=== PATIENT | female | born 1945 | race Caucasian/White ===

== ENCOUNTER → 2023-12-13 | Outpatient (CLI) | payer MEDICARE, SELFPAY ==
[2023-12-13 15:07] LABS: Absolute Lymphocyte Count 1.67 X10^3/uL (0.83-4.51); Absolute Neutrophil Count 6.1 X10^3/uL (2.0-7.7); Basophil# 0.03 X10^3/uL; Basophil% 0.3 % (0-1); Eosinophils% 1.2 % (0-5); Hematocrit 44.2 % (37-47); Hemoglobin 14.3 g/dL (12.0-15.0); Lymphocyte # 1.67 X10^3/ul (0.83-4.51); Lymphocyte % 19.3 % (19-41); Mean Corp Hgb Conc 32.4 g/dL (32-36); Mean Corpuscular Hgb 29.1 pg (27.0-32.0); Monocyte# 0.74 X10^3/uL; Monocyte% 8.6 % (0-10); NRBC Flagged by Analyzer 0 % (0-5); Neutrophil # 6.06 X10^3/uL (2.7-7.7); Neutrophil % 70.1 % (47-70); Platelet Count 188 K/mm3 (150-450); RBC Distribution Width CV 14.2 % (11.6-14.6); RBC Distribution Width SD 46.7 fl (35.1-43.9); Red Blood Count 4.91 M/mm3 (4.2-5.4); White Blood Count 8.6 K/mm3 (4.4-11.0)
[2023-12-13 15:43] LABS: ALB/GLOB Ratio 0.9 RATIO (0.9-2.4); AST(SGOT) 14 U/L (15-37); Alanine Aminotransfer ALT/SGPT 21 U/L (13-56); Albumin, Serum 3.5 g/dL (3.2-5.0); Alkaline Phosphatase 88 U/L (45-117); Anion Gap 5 (5-15); BUN 15 mg/dL (7-18); BUN/Creat Ratio 16.5 RATIO (10-20); Calcium,Total 9.5 mg/dL (8.5-10.1); Chloride 106 mmol/L (98-107); Cholesterol 217 mg/dL (200); Creatinine, Serum 0.91 mg/dL (0.55-1.02); EST Glomerular Filtration Rate 64 mL/min (>60); Est Glom Filt Rate - Afr Amer 78 mL/min (>60); Globulin 4.1 g/dL (2.2-4.2); Glucose 116 mg/dL (74-106); High Density Lipoprotein 60 mg/dL; Potassium 4.2 mmol/L (3.5-5.1); Protein, Total 7.6 g/dL (6.4-8.2); Sodium Level 139 mmol/L (136-145); Triglycerides 233 mg/dL; Very Low Density Lipoprotein 47 mg/dL (5-40)
[2023-12-13 15:44] LABS: BNP,B-Type NATRIURETIC PEPTIDE 204.4 pg/mL (0-100)
== END | disposition home or self-care (01) ==
PROVIDERS: PCP Family Medicine; Referring Provider Family Medicine; Visit Provider Family Medicine
DX: I11.9 Hypertensive heart disease without heart failure (principal); R01.1 Cardiac murmur, unspecified; R10.9 Unspecified abdominal pain
CPT/HCPCS: 36415; 80053; 80061; 83880; 84443; 85025

== ENCOUNTER → 2024-01-02 | Outpatient (CLI) | payer MEDICARE, SELFPAY ==
--- NOTE | 2024-01-02 10:01 | ECHOD_ITS ---
Reason For Study: MURMUR Procedure This was a 2D Doppler, Color Flow transthoracic echocardiogram. The study was technically difficult. Exam performed in department. Left Ventricle Normal LV size. Left ventricular systolic function is normal. The left ventricular ejection fraction is 65 %. Stage 1 diastolic dysfunction. No regional wall motion abnormalities noted. Right Ventricle Normal RV size. Normal systolic function. Atria Normal left atrium. Normal right atrium. Mitral Valve Normal mitral valve. Tricuspid Valve Normal tricuspid valve. Aortic Valve Peak aortic valve gradient 84 mmHg. Mean aortic valve gradient 55 mmHg. Critical aortic stenosis. Pulmonic Valve Normal pulmonic valve. Great Vessels Normal aortic root. The pulmonary artery is normal size. Inferior vena cava collapse with respiration. Pericardium/Pleural No pericardial effusion. MMode/2D Measurements & Calculations LVIDd: 4.8 cm IVSd: 1.1 cm LVOT diam: 1.8 cm LVIDs: 2.8 cm LVPWd: 1.1 cm LVOT area: 2.5 cm2 RVDd: 3.5 cm FS: 42.5 % asc Aorta Diam: 2.8 cm LAV(MOD-bp): 54.1 ml LVAd ap4: 22.8 cm2 LAV(MOD-bp) Indexed: 28.1 ml/m2 LVLd ap4: 7.5 cm LAV(MOD-sp2): 52.8 ml EDV(MOD-sp4): 57.6 ml LAV(MOD-sp4): 54.7 ml EDV(sp4-el): 59.2 ml LVAs ap4: 12.4 cm2 LVLs ap4: 6.2 cm ESV(MOD-sp4): 21.6 ml ESV(sp4-el): 21.1 ml EF(MOD-sp4): 62.4 % EF(sp4-el): 64.3 % LVAd ap2: 20.8 cm2 SV(MOD-sp4): 35.9 ml SV(MOD-sp2): 30.0 ml LVLd ap2: 7.1 cm EDV(MOD-sp2): 51.7 ml EDV(sp2-el): 52.2 ml LVAs ap2: 11.8 cm2 LVLs ap2: 5.8 cm ESV(MOD-sp2): 21.7 ml ESV(sp2-el): 20.5 ml EF(MOD-sp2): 58.0 % SV(sp4-el): 38.0 ml Ao sinus diam: 2.[address] Junction: 2.1 cm LA dimension(2D): 4.0 cm LA A4 area: 19.6 cm2 RA A4 area: 11.2 cm2 TAPSE: 1.9 cm Time Measurements MV dec time: 0.16 sec Doppler Measurements & Calculations MV E max adonay: 111.7 cm/sec Lat Peak E' Adonay: 10.0 cm/sec Med Peak E' Adonay: 7.3 cm/sec MV A max adonay: 119.3 cm/sec E/E' lat: 11.2 E/E' med: 15.3 MV E/A: 0.94 MV dec slope: 685.1 cm/sec2 Ao V2 max: 456.4 cm/sec LV V1 max: 111.9 cm/sec Ao max P.4 mmHg LV V1 max P.0 mmHg Ao V2 mean: 360.7 cm/sec LV V1 mean P.2 mmHg Ao mean P.3 mmHg LV V1 mean: 87.7 cm/sec Ao V2 VTI: 109.1 cm LV V1 VTI: 27.3 cm AV (velocity ratio): 0.25 CONSTANCE(I,D): 0.62 cm2 CONSTANCE(V,D): 0.61 cm2 SV(LVOT): 67.9 ml PA V2 max: 91.6 cm/sec PA max PG (full): 1.2 mmHg ECHO/Echo Complete Interpretation Summary Normal LV size. Left ventricular systolic function is normal. The left ventricular ejection fraction is 65 %. Stage 1 diastolic dysfunction. Mean aortic valve gradient 55 mmHg. Critical aortic stenosis. Ordering Physician: Ria Aparicio Referring Physician: Ria Aparicio Performed By: Briseida Stubbs RDCS
--- NOTE | 2024-01-02 10:53 | BI_ITS ---
MAMMOGRAPHY - BILATERAL SCREENING REASON FOR EXAM: Female, 78 years old. Routine annual screening examination. PERTINENT HISTORY: Non-contributory. TECHNIQUE: Digital bilateral breast linda (3D mammographic acquisition) in the CC and MLO projections. 2-D mediolateral oblique (MLO) and craniocaudad (CC) views of both breasts were obtained. CAD: Full Field Digital Mammography with Computer Added Detection was performed. COMPARISON: No comparison mammograms available at this time. If any prior films become available, an addendum to this report can be generated. FINDINGS: Breast Composition: There are scattered areas of fibroglandular density. There are no dominant masses or suspicious calcifications. No other significant abnormalities are identified. BI/SCRN MAMM (CAD)W/LINDA BILAT IMPRESSION: Negative screening mammogram. Yearly followup mammogram recommended. (A) ASSESSMENT CATEGORY: BIRADS Category 1: Negative. A letter regarding these results will be sent to the patient by the facility within 30 days. Approximately 10% of breast cancers are not detected by mammography. A normal mammogram should not delay biopsy of a clinically suspicious abnormality. [id number] Electronically Signed: Freeman Montes MD at 12:10 EDT ,
== END | disposition home or self-care (01) ==
PROVIDERS: PCP Family Medicine; Referring Provider Family Medicine; Visit Provider Family Medicine
DX: Z12.31 Encounter for screening mammogram for malignant neoplasm of breast (principal); R01.1 Cardiac murmur, unspecified
CPT/HCPCS: 77063; 77067; 93306

== ENCOUNTER → 2024-01-08 | Outpatient (CLI) | payer MEDICARE, SELFPAY ==
--- NOTE | 2024-01-08 15:05 | RAD_ITS ---
STUDY: X-RAY CHEST REASON FOR EXAM: Female, 78 years old. Dyspnea on exertion. TECHNIQUE: Frontal and lateral views of the chest. COMPARISON: None. FINDINGS: The lungs are clear and expanded. Healed granulomatous calcifications. There is no demonstrated pleural abnormality. Cardiomegaly. Normal mediastinum and shasta. Normal visualized pulmonary arteries. Aortic tortuosity. Thoracic spondylosis. Normal visualized ribs, clavicles, and shoulders. No abnormality of the visualized soft tissue structures of the upper abdomen. RAD/Chest PA and Lateral IMPRESSION: No active or acute cardiopulmonary disease. Electronically Signed: Haroon Martinez MD at 15:32 EDT ,
[2024-01-08 15:52] LABS: Absolute Lymphocyte Count 1.73 X10^3/uL (0.83-4.51); Absolute Neutrophil Count 6.6 X10^3/uL (2.0-7.7); Basophil# 0.03 X10^3/uL; Basophil% 0.3 % (0-1); Eosinophil# 0.17 X10^3/uL; Eosinophils% 1.8 % (0-5); Hematocrit 44.7 % (37-47); Hemoglobin 14.2 g/dL (12.0-15.0); Lymphocyte # 1.73 X10^3/ul (0.83-4.51); Lymphocyte % 18.8 % (19-41); Mean Corp Hgb Conc 31.8 g/dL (32-36); Mean Corpuscular Hgb 28.7 pg (27.0-32.0); Mean Corpuscular Volume 90.3 fL (81-99); Mean Platelet Vol. 11.7 fl (6.2-12.0); Monocyte# 0.67 X10^3/uL; Monocyte% 7.3 % (0-10); NRBC Flagged by Analyzer 0 % (0-5); Neutrophil # 6.57 X10^3/uL (2.7-7.7); Neutrophil % 71.4 % (47-70); Platelet Count 200 K/mm3 (150-450); RBC Distribution Width CV 14.4 % (11.6-14.6); RBC Distribution Width SD 47.8 fl (35.1-43.9); Red Blood Count 4.95 M/mm3 (4.2-5.4); White Blood Count 9.2 K/mm3 (4.4-11.0)
[2024-01-08 16:06] LABS: International Normalized Ratio 1.1; Prothrombin Time (Protime)PT. 13.8 SECONDS (11.7-14.9)
[2024-01-08 16:32] LABS: Anion Gap 6 (5-15); BUN 11 mg/dL (7-18); BUN/Creat Ratio 14.6 RATIO (10-20); Calcium,Total 9.8 mg/dL (8.5-10.1); Chloride 105 mmol/L (98-107); Creatinine, Serum 0.75 mg/dL (0.55-1.02); EST Glomerular Filtration Rate 80 mL/min (>60); Est Glom Filt Rate - Afr Amer 96 mL/min (>60); Glucose 106 mg/dL (74-106); Potassium 3.9 mmol/L (3.5-5.1); Sodium Level 138 mmol/L (136-145)
== END | disposition home or self-care (01) ==
LOC: RAD 15:02
PROVIDERS: PCP Family Medicine; Referring Provider Physician Assistant Medical; Visit Provider Physician Assistant Medical
DX: I35.0 Nonrheumatic aortic (valve) stenosis (principal); I10 Essential (primary) hypertension; E78.5 Hyperlipidemia, unspecified
CPT/HCPCS: 36415; 71046; 80048; 85025; 85610

== ENCOUNTER 2024-01-25 07:27 | Day surgery (SDC) | payer MEDICARE, SELFPAY ==
[2024-01-24 08:32] VITALS: BMI 40.0
--- NOTE | 2024-01-25 09:18 | CL.D_ITS ---
Patient Name: LINK DOZIER Study Date: 01/25/2024 Performing: Rohit Santos MD Ht: 61.02 inches 155 cm : 1945 Wt: 212 lbs 96.16 kg Age: 78 Gender: female BSA: 1.94 PROCEDURE(S) PERFORMED [id number])[facility] CLINICAL PROFILE AND INDICATIONS Indications: Other Heart Failure: None Stress/Imaging Stress/Image Study Performed: No CAD Presentations: No Sxs, no angina. CONCLUSIONS Mild coronary artery disease with severe aortic stenosis by echocardiographic criteria. RECOMMENDATIONS Surgery consult for Valve Replacement surgery DESCRIPTION OF PROCEDURE The patient arrived to the procedure lab. The risks and benefits of the procedure as well as a full description of our services here and current unavailability of surgical backup were fully explained to the patient and/or their significant other prior to the catheterization. The Timeout was completed, verifying the correct patient and procedure. The patient's procedural site was prepped and draped in the usual fashion. Local anesthetic was given subcutaneously to right radial region with Lidocaine 2%. Using a modified Seldinger technique, arterial access was obtained via the right radial artery, a 6Fr sheath was inserted. Left Coronary Artery selective angiography was performed in multiple views using a 5 Fr. 4.0 [place] catheter. Right Coronary Artery selective angiography was then performed in multiple views using a 5 Fr. 4.0 [place] catheter.The arterial sheath was pulled and a TR Band was applied for hemostasis. 10cc air CORONARY ANGIOGRAPHY DOMINANCE: Right Dominant LEFT HEART ASSESSMENT Left Ventricular Ejection Fraction: by Echo 65 % Normal LV wall motion Normal Left Ventricular systolic function LEFT MAIN: Angiographically normal LEFT ANTERIOR DESCENDING ARTERY: Mild luminal irregularities CIRCUMFLEX ARTERY: Mild luminal irregularities RIGHT CORONARY ARTERY: Mild luminal irregularities VALVE FINDINGS: Aortic Valve Stenosis - severe COMPLICATIONS No Complications PROCEDURE MEDICATIONS Fentanyl 50 mcg IV Versed 1 mg IV Oxygen: 2 L/min via nasal cannula Aspirin (325mg) 1 Tabs PO @ 01/25/2024 07:52:59 SUMMARY OF HEMODYNAMIC DATA Time AIR REST ECG 07:48:53 AO 145/70 (101) SA 08:55:57 Signed By Rohit Santos MD On 01/25/2024 09:17:47 Rohit Santos MD
== END 2024-01-25 11:00 | disposition home or self-care (01) ==
PROVIDERS: PCP Family Medicine; Referring Provider Internal Medicine Cardiovascular Disease; Visit Provider Internal Medicine Cardiovascular Disease
DX: I35.0 Nonrheumatic aortic (valve) stenosis (principal); I25.10 Atherosclerotic heart disease of native coronary artery without angina pectoris; I10 Essential (primary) hypertension; E78.5 Hyperlipidemia, unspecified; Z79.899 Other long term (current) drug therapy
CPT/HCPCS: 93454; 99152; 99153; J7040; Q9967; C1769; C1894

== ENCOUNTER → 2024-02-15 | Outpatient (CLI) | payer MEDICARE, SELFPAY ==
--- OUTSIDE RECORDS SUMMARY | 2024-02-15 11:56 | XMS RPT_ITS | CCD ---
Author Organization [facility] Care Team Providers Care Hadoop Application Developer Name Role Phone MAILE DICKENSBERLY Consulting Unavailable MARIA ALEJANDRA, TANJA PAC Admitting Unavailable MARIA ALEJANDRA, TANJA PAC Attending Unavailable MARIA ALEJANDRA, TANJA PAC Primary Care Unavailable PROVIDER, UNKNOWN Consulting Unavailable NNEKA, DR DESIRAE Moon Admitting Unavaila ble HILLS, GRETCHEN Consulting Unavailable NNEKA, DR DESIRAE Moon Attending Unavaila ble NNEKA, DR DESIRAE Moon Primary Care Unavaila ble PROVIDER, UNKNOWN Consulting Unavailable HILLS, GRETCHEN Consulting Unavailable NNEKA, DR DESIRAE Moon Admitting Unavaila ble NNEKA, DR DESIRAE Moon Attending Unavaila ble NNEKA, DR DESIRAE Moon Primary Care Unavaila ble PROVIDER, UNKNOWN Consulting Unavailable MARIA ALEJANDRA, TANJA PAC Admitting Unavailable HILLS, GRETCHEN Consulting Unavailable MARIA ALEJANDRA, TANJA PAC Attending Unavailable MARIA ALEJANDRA, TANJA PAC Primary Care Unavailable PROVIDER, UNKNOWN Consulting Unavailable KAYLEE EDUARDO DO Primary Care Unavailable KAYLEE EDUARDO DO Admitting Unavailable HILLS, GRETCHEN Consulting Unavailable KAYLEE EDUARDO DO Attending Unavailable PROVIDER, UNKNOWN Consulting Unavailable Ria Aparicio MD Primary Care Provider [phone] FELIPE RODRIGUEZ Attending Unavailable RIA APARICIO Primary Care Unavailable KOJO VILLANUEVA Attending Unavailable RIA APARICIO Primary Care Unavailable MATILDA OSBORN Attending Unavailable MATILDA OSBORN Referring Unavailable RIA APARICIO Primary Care Unavailable Allergies Allergy Classification Reported Allergen(s) Allergy Type Date of Onset Reaction(s) Facility (4 sources) Cortisone Drug Allergy 01-29-2024 [facility] Medications Current Medications Medication Drug Class(es) Dates Sig (Normalized) Sig (Original) atorvastatin 10 mg oral tablet (4 sources) HMG-CoA Reductase Inhibitor Start: 01-08-2024 take 1 tablet by mouth once daily atorvastatin (Lipitor) 10 MG tablet Take 10 mg by mouth Nightly. 01/08/2024 Active furosemide 20 mg oral tablet (4 sources) Loop Diuretic Start: 01-10-2024 take 1 tablet by mouth once daily in the morning furosemide (Lasix) 20 MG tablet Take 20 mg by mouth every morning. 01/10/2024 Active latanoprost 0.05 mg/ml ophthalmic solution (4 sources) Prostaglandin Analog Start: 12-28-2023 take 1 drop(s) into the eye(s) once daily latanoprost (Xalatan) 0.005 % ophthalmic solution Administer 1 drop into both eyes daily. 12/28/2023 Active losartan potassium 25 mg oral tablet (4 sources) Angiotensin 2 Receptor Emily Start: 01-09-2024 take 1 tablet by mouth once daily losartan (Cozaar) 25 MG tablet Take 25 mg by mouth daily. 01/09/2024 Active Completed/Discontinued Medications Medication Drug Class(es) Dates Sig (Normalized) Sig (Original) iopamidol (Isovue-370) 76 % injection 100 mL (2 sources) Start: 02-12-2024 End: 02-12-2024 take 100 mL intravenously once as needed 100 mL, IntraVENous, IMG once PRN, contrast, Starting on Sun02/12/24 at 1102, For 1 dose Problems Active Problems Problem Classification Problem Date Documented Da te Episodic/Chronic Congestive heart failure; nonhypertensive (3 sources) Chronic diastolic heart failure; Translations: [Chronic diastolic (congestive) heart failure] Onset: 02-12-2024 02-12-2024 Chronic Disorders of lipid metabolism (7 sources) Hyperlipidemia; Translations: [Hyperlipidemia, unspecified] Onset: 01-29-2024 01-29-2024 Chronic Essential hypertension (7 sources) Essential hypertension; Translations: [Essential (primary) hypertension] Onset: 01-29-2024 01-29-2024 Chronic Heart valve disorders (12 sources) Critical stenosis of aortic valve; Translations: [Nonrheumatic aortic (valve) stenosis] Onset: 01-29-2024 02-12-2024 Chronic Osteoarthritis (3 sources) Primary osteoarthritis, left shoulder; Translations: [Primary osteoarthritis, left shoulder] Onset: 12-19-2019 Chronic Past or Other Problems Problem Classification Problem Date Documented Da te Episodic/Chronic Spondylosis; intervertebral disc disorders; other back problems (1 source) Cervicalgia; Translations: [Cervicalgia] Onset: 12-19-2019 Episodic Results Test Name Value Interpretation Reference Range Facil ity CT ANGIOGRAM TAVRon 02-14-20 CT ANGIOGRAM TAVR [facility] 1945 [id number] Exam Date/Time: 02/12/2024 11:19 Procedure: CT ANGIOGRAM TAVR Ordering Provider: OSBORN MICHELLE Reason For Exam: AORTIC VALVE STENOSIS --------ADDENDUM #1 -------- This is a radiology addendum for the noncardiovascular findings on the CT images of the chest, abdomen, and pelvis obtained for this examination: No focal consolidation is seen within the lungs. Mild atelectasis or scarring is present within the lung bases. There is no pleural effusion or pneumothorax. No suspicious pulmonary nodules are identified. No lymphadenopathy is seen within the chest. Cholelithiasis is noted. The liver, spleen, pancreas, adrenal glands, and kidneys appear within normal limits. There is no lymphadenopathy within the abdomen or pelvis. The urinary bladder appears grossly normal. The uterus does not appear enlarged. Large and small bowel loops do not appear abnormally dilated or thickened. There is no free fluid or free air within the abdomen or pelvis. No lytic or blastic lesions are seen on the bone windows. IMPRESSION: No actionable findings are seen on the CT images of the chest, abdomen, or pelvis obtained for this examination. Please see Dr. Harris's original report for cardiovascular findings and measurements. Report Dictated on Electronically Signed By: Holden Barry MD Electronically Signed Date/Time: 02/14/2024 8:39 AM EDT --------ORIGINAL REPORT -------- [facility] Cardiovascular CTA Indication: 78 year-old woman with severe aortic stenosis, being evaluated for transcatheter aortic valve implantation. Technique: Computed tomography of the heart, thoracoabdominal aorta, and iliofemoral system was performed using a [employer] Aquilion One 320 detector scanner. Images were reconstructed and analyzed on an advanced post-processing 3D workstation. Contrast: 100 mL Total DLP: 1824.10 mGy-cm Study Quality: Good Extracardiac Findings: For a complete description of extracardiac structures, please refer to the accompanying radiology addendum. Cardiac Chambers: The pericardium is unremarkable. The left and right ventricles are normal in size. The left atrium is moderately dilated. The left atrial appendage is normal in appearance. The right atrium is normal in size. Coronary Arteries: The coronaries have normal origins. There is a pattern of right coronary dominance. There is evidence of mild coronary atherosclerosis. The present study was not optimized for evaluation of the coronary arteries. Mitral Valve: The mitral annulus and LVOT have no significant calcification. The anterior mitral leaflet is free of the LVOT during systole. Aortic Valve: The aortic valve anatomy is difficult to ascertain, suspect possible bicuspid with left-right fusion. There is moderate calcification. Predicted deployment angle (3-cusp view): LIBERIAN 15, CAU 1 Aortic Annulus: Dimensions: 2.50 x 1.83 cm Area: 3.44 cm2 Perimeter: 68.2 mm Left coronary height: 14.3 mm Right Coronary height: 14.6 mm Aorta and Iliofemoral System: All vascular measurements are minimal luminal diameters using a centerline technique. Aortic Root and Thoracic Aorta: Sinuses of Valsalva: 24 mm Sinotubular junction: 25 mm Mid ascending Aorta: 28 mm Abdominal Aorta: Infrarenal: 13 mm Bifurcation: 12 mm Right Iliac System: Calcification: mild. Tortuosity: Minimal. RCIA: 8 mm REIA: 7 mm RCFA: 7 mm Left Iliac System: Calcification: mild. Tortuosity: mild. LCIA: 9 mm DOUG: 7 mm LCFA: 6 mm CONCLUSIONS: 1. Calcific aortic stenosis, with descriptive anatomy and annular / aortic root measurements as detailed above. 2. Patent bilateral iliofemoral system as detailed above. Report Dictated on Electronically Signed By: Christofer Harris MD Electronically Signed Date/Time: 02/12/2024 4:48 PM EDT [facility] 1945 [id number] Exam Date/Time: 02/12/2024 11:19 Procedure: CT ANGIOGRAM TAVR Ordering Provider: OSBORN MICHELLE Reason For Exam: AORTIC VALVE STENOSIS [facility] Cardiovascular CTA Indication: 78 year-old woman with severe aortic stenosis, being evaluated for transcatheter aortic valve implantation. Technique: Computed tomography of the heart, thoracoabdominal aorta, and iliofemoral system was performed using a [employer] Aquilion One 320 detector scanner. Images were reconstructed and analyzed on an advanced post-processing 3D workstation. Contrast: 100 mL Total DLP: 1824.10 mGy-cm Study Quality: Good Extracardiac Findings: For a complete description of extracardiac structures, please refer to the accompanying radiology addendum. Cardiac Chambers: The pericardium is unremarkable. The left and right ventricles are normal in size. The left atrium is moderately dilated. The left atrial a (more content not included)... Normal [facility] CT Chest WO and CT angiogram Coronary arteries W contrast Josué 02-12-2024 [facility] Name[facility] : 1945 [id number] Exam Date/Time: 02/12/2024 11:19 Procedure: CT ANGIOGRAM TAVR Ordering Provider: OSBORN MICHELLE Reason For Exam: AORTIC VALVE STENOSIS [facility] Cardiovascular CTA Indication: 78 year-old woman with severe aortic stenosis, being evaluated for transcatheter aortic valve implantation. Technique: Computed tomography of the heart, thoracoabdominal aorta, and iliofemoral system was performed using a [employer] Aquilion One 320 detector scanner. Images were reconstructed and analyzed on an advanced post-processing 3D workstation. Contrast: 100 mL Total DLP: 1824.10 mGy-cm Study Quality: Good Extracardiac Findings: For a complete description of extracardiac structures, please refer to the accompanying radiology addendum. Cardiac Chambers: The pericardium is unremarkable. The left and right ventricles are normal in size. The left atrium is moderately dilated. The left atrial appendage is normal in appearance. The right atrium is normal in size. Coronary Arteries: The coronaries have normal origins. There is a pattern of right coronary dominance. There is evidence of mild coronary atherosclerosis. The present study was not optimized for evaluation of the coronary arteries. Mitral Valve: The mitral annulus and LVOT have no significant calcification. The anterior mitral leaflet is free of the LVOT during systole. Aortic Valve: The aortic valve anatomy is difficult to ascertain, suspect possible bicuspid with left-right fusion. There is moderate calcification. Predicted deployment angle (3-cusp view): LIBERIAN 15, CAU 1 Aortic Annulus: Dimensions: 2.50 x 1.83 cm Area: 3.44 cm2 Perimeter: 68.2 mm Left coronary height: 14.3 mm Right Coronary height: 14.6 mm Aorta and Iliofemoral System: All vascular measurements are minimal luminal diameters using a centerline technique. Aortic Root and Thoracic Aorta: Sinuses of Valsalva: 24 mm Sinotubular junction: 25 mm Mid ascending Aorta: 28 mm Abdominal Aorta: Infrarenal: 13 mm Bifurcation: 12 mm Right Iliac System: Calcification: mild. Tortuosity: Minimal. RCIA: 8 mm REIA: 7 mm RCFA: 7 mm Left Iliac System: Calcification: mild. Tortuosity: mild. LCIA: 9 mm DOUG: 7 mm LCFA: 6 mm CONCLUSIONS: 1. Calcific aortic stenosis, with descriptive anatomy and annular / aortic root measurements as detailed above. 2. Patent bilateral iliofemoral system as detailed above. Report Dictated on Electronically Signed By: Christofer Harris MD Electronically Signed Date/Time: 02/12/2024 4:48 PM T [facility] Christofer Harris MD - 02/12/2024 [facility] Name: [facility]ENNI [facility] : 1945 [id number] Exam Date/Time: 02/12/2024 11:19 Procedure: CT ANGIOGRAM TAVR Ordering Provider: OSBORN MICHELLE Reason For Exam: AORTIC VALVE STENOSIS [facility] Cardiovascular CTA Indication: 78 year-old woman with severe aortic stenosis, being evaluated for transcatheter aortic valve implantation. Technique: Computed tomography of the heart, thoracoabdominal aorta, and iliofemoral system was performed using a [employer] Aquilion One 320 detector scanner. Images were reconstructed and analyzed on an advanced post-processing 3D workstation. Contrast: 100 mL Total DLP: 1824.10 mGy-cm Study Quality: Good Extracardiac Findings: For a complete description of extracardiac structures, please refer to the accompanying radiology addendum. Cardiac Chambers: The pericardium is unremarkable. The left and right ventricles are normal in size. The left atrium is moderately dilated. The left atrial appendage is normal in appearance. The right atrium is normal in size. Coronary Arteries: The coronaries have normal origins. There is a pattern of right coronary dominance. There is evidence of mild coronary atherosclerosis. The present study was not optimized for evaluation of the coronary arteries. Mitral Valve: The mitral annulus and LVOT have no significant calcification. The anterior mitral leaflet is free of the LVOT during systole. Aortic Valve: The aortic valve anatomy is difficult to ascertain, suspect possible bicuspid with left-right fusion. There is moderate calcification. Predicted deployment angle (3-cusp view): LIBERIAN 15, CAU 1 Aortic Annulus: Dimensions: 2.50 x 1.83 cm Area: 3.44 cm2 Perimeter: 68.2 mm Left coronary height: 14.3 mm Right Coronary height: 14.6 mm Aorta and Iliofemoral System: All vascular measurements are minimal luminal diameters using a centerline technique. Aortic Root and Thoracic Aorta: Sinuses of Valsalva: 24 mm Sinotubular junction: 25 mm Mid ascending Aorta: 28 mm Abdominal Aorta: Infrarenal: 13 mm Bifurcation: 12 mm Right Iliac System: Calcification: mild. Tortuosity: Minimal. RCIA: 8 mm REIA: 7 mm RCFA: 7 mm Left Iliac System: Calcification: mild. Tortuosity: mild. LCIA: 9 mm DOUG: 7 mm LCFA: 6 mm CONCLUSIONS: 1. Calcific aortic stenosis, with descriptive anatomy and annular / aortic root measurements as detailed above. 2. Patent bilateral iliofemoral system as detailed above. Report Dictated on Electronically Signed By: Christofer Harris MD Electronically Signed Date/Time: 02/12/2024 4:48 PM EDT [facility] Study observation (narrative) [facility] CT Chest WO and CT angiogram Coronary arteries W contrast IVOrdered By: Christofer Harris on 02-12-2024 [facility] Work Phone: ECG 12 lead - CLINIC PERFORM EDon 02-12-2024 Sinus Rhythm Voltage criteria for LVH (R(aVF) exceeds 1.50 mV). -ST depression + Nonspecific T-abnormality -Seen with left ventricular hypertrophy (strain) -consider ischemia. [facility] Office Visiton 02-12-2024 Follow-up visit [id number] Yenni Dozier 1945 F Date Provider Department Center 02/12/2024 [id number] VILLANUEVA [facility] [address] No family history on file Level of Service:28416 [place] OFFICE/OP CONSLTJ NEW/EST PT MOD MDM 40 MINUTES Reason for Visit and Comments: Cardiac Valve Problem [1334] Normal [facility] Follow-up visit [id number] Yenni Dozier 1945 F Date Provider Department Center 02/12/2024 FELIPE GEORGE [facility] [address] No family history on file Level of Service:60283 [place] OFFICE/OUTPATIENT NEW HIGH MDM 60 MINUTES Reason for Visit and Comments: Cardiac Valve Problem [1334] Normal [facility] Progress Noteon 02-12-2024 Progress Note [facility]: Cardiothoracic Surgery Multidisciplinary [facility]ve [facility] Date: 02/12/24 Patient:Yenni Dozier 1945 78 y.o. female [id number] Subjective: HPI: Yenni Dozier 78 [address] Santos is being evaluated for aortic valve stenosis. Echocardiogram completed on 01/02/2024 showed critical aortic valve stenosis with peak/mean gradients 84/55 mm Hg. Per note, pt saw Dr. Aparicio with complaints of SOB, intermittent chest pain at rest, and edema. She had an echocardiogram done in December 2023 which demonstrated normal left ventricular systolic function, estimated EF 65%, and critical aortic stenosis. Pt then underwent a heart catheterization on 01/25/24 which showed mild CAD with severe aortic stenosis. Medical History Past Medical History: Diagnosis Date Aortic stenosis Hyperlipidemia Hypertension Blood thinner - none Transthoracic Echocardiogram 01/02/2024 Heart Catheterization 01/25/2024 Review of Systems Constitutional: Positive for activity change. Negative for chills, diaphoresis, fatigue and fever. HENT: Negative for nosebleeds and trouble swallowing. Eyes: Negative for discharge and visual disturbance. Respiratory: Positive for shortness of breath. Negative for apnea, cough, chest tightness and wheezing. Cardiovascular: Positive for chest pain and leg swelling. Negative for palpitations. Gastrointestinal: Negative for abdominal distention, abdominal pain, blood in stool, diarrhea, nausea and vomiting. Endocrine: Negative for cold intolerance and heat intolerance. Genitourinary: Negative for hematuria. Musculoskeletal: Negative for gait problem and myalgias. Skin: Negative for color change and rash. Neurological: Negative for dizziness, seizures, syncope, facial asymmetry, speech difficulty, weakness, light-headedness, numbness and headaches. Hematological: Does not bruise/bleed easily. Psychiatric/Behavioral: Negative for dysphoric mood. Allergies: Cortisone Past Medical History: has a past medical history of Aortic stenosis, Hyperlipidemia, and Hypertension. Past Surgical History: has a past surgical history that includes Rotator cuff repair (Right). Social History: reports that she has never smoked. She has never used smokeless tobacco. She reports current alcohol use. Family History: family history is not on file. Medications: Prior to Admission medications Medication Sig Start Date End Date Taking? Authorizing Provider atorvastatin (Lipitor) 10 MG tablet Take 10 mg by mouth Nightly. 01/08/24 Yes Historical Provider, furosemide (Lasix) 20 MG tablet Take 20 mg by mouth every morning. 01/10/24 Yes Historical Provider, latanoprost (Xalatan) 0.005 % ophthalmic solution Administer 1 drop into both eyes daily. 12/28/23 Yes Historical Provider, losartan (Cozaar) 25 MG tablet Take 25 mg by mouth daily. 01/09/24 Yes Historical Provider, Objective: BP 114/68 (BP Location: Left arm, Patient Position: Sitting, BP Cuff Size: Adult) Pulse 89 Ht 5' 0.98 (1.549 m) Wt 211 lb 6.7 oz (95.9 kg) SpO2 96% BMI 39.97 kg/m? @[id number]@ Physical Exam General--AAO x 3 CV--regular rhythm with systolic murmur Resp--CTAB Abd--soft, ND, NT Ext--2+ edema in lower extremities Neuro--no gross deficits STS Risk Calculator Procedure Type: Isolated AVR Perioperative Outcome Estimate % Operative Mortality 2.46% Morbidity & Mortality 9.47% Stroke 0.954% Renal Failure 2.16% Reoperation 3.07% Prolonged Ventilation 4.89% Deep Sternal Wound Infection 0.112% Long Hospital Stay (>14 days) 4.03% Short Hospital Stay (<6 days)* 42.8% Labs: Reviewed in EMR No results found for: WBC , HGB , HCT , MCV , PLT No results found for: NA , K , CL , CO2 , BUN , CREATININE , GLUCOSE , CALCIUM Diagnostics: Reviewed in EMR Assessment/Plan: Severe symptomatic aortic stenosis--warrants replacement Chronic diastolic congestive heart failure--class III Hypertension Recommendations: Aortic valve replacement is indicated in her. Due to her age and valve size a TAVR would be a better option for her. This was explained to her in detail. The risks have been outlined as well. All questions were answered and she is willing to proceed. Patient consents to surgical bailout: [x] Yes [] No If No why: Disclaimers: INFORMED CONSENT: The nature and purpose of the proposed treatment and/or procedure have been discussed. The risks and benefits of the proposed treatment or procedures have been reviewed. Alternatives have been reviewed in addition to the risks and benefits of not receiving treatments or undergoing procedures. Pursuant to this discussion, the patient agrees to undergo the proposed treatment or procedure. Captured images seen in this note are not a substitute for a comprehensive interpretation of the entire data set as reflected by the interpreting physician with regard to (more content not included)... Normal [facility] Progress Note [facility] - [address] [address] Dept: [phone] Dept Loc: [phone] Interventional Cardiology Office Note Visit type: New patient Reason for Visit: Cardiac Valve Problem Assessment and Plan Yenni Dozier is a very pleasant 78 y.o. female who presents for evaluation of her aortic stenosis. She has severe symptomatic aortic stenosis. She has no significant coronary disease. She has no other indication for surgery. We will plan transcatheter aortic valve replacement via transfemoral approach. The Transcatheter Aortic Valve Replacement (TAVR) procedure was explained in detail. The potential risks of the procedure including bleeding, vascular complications, stroke, myocardial infarction, arrhythmias, renal dysfunction, infection and were described. All of the patient's questions were answered. The patient expressed understanding of the procedure and the potential risks and wishes to proceed with TAVR at this time. 1. Critical aortic valve stenosis - ECG 12 lead - CLINIC PERFORMED - Case Request Spanish Lecturer: Transcatheter aortic valve replacement (TAVR), TRANSCATHETER AORTIC VALVE REPLACEMENT (TAVR) - OR No follow-ups on file. It was a great pleasure seeing Yenni Dozier in our office today. Please contact me with any questions. Felipe Rodriguez MD MPH, [facility], [facility] Chief, Ischemic Heart Disease Head Of Strategy, Interventional Cardiology Fellowship Ship Cleaner Coronary, Structural, Peripheral Interventions Subjective Yenni Dozier is a very pleasant 78 y.o. female with Aortic stenosis (ejection fraction 65%, aortic valve area 0.6, peak/mean 84/55, dimensionless index 0.25), obesity, hypertension, hyperlipidemia who presents for evaluation of her aortic stenosis. She is a patient of Dr. Santos. She has been having worsening edema and shortness of breath with exertion over the past several months. She denies any syncope. She does have some mid substernal chest pain with some exertion. She denies any rest pain. She had a heart cath by Dr. Santos which revealed no significant coronary disease. She had a CTA today which revealed patent iliofemoral vessels. Review of Systems Constitutional: Positive for activity change. Negative for chills, diaphoresis, fatigue and fever. HENT: Negative for nosebleeds and trouble swallowing. Eyes: Negative for discharge and visual disturbance. Respiratory: Positive for shortness of breath. Negative for apnea, cough, chest tightness and wheezing. Cardiovascular: Positive for chest pain (relief with rest) and leg swelling. Negative for palpitations. Gastrointestinal: Negative for abdominal distention, abdominal pain, blood in stool, diarrhea, nausea and vomiting. Endocrine: Negative for cold intolerance and heat intolerance. Genitourinary: Negative for hematuria. Musculoskeletal: Negative for gait problem and myalgias. Skin: Negative for color change and rash. Neurological: Negative for dizziness, seizures, syncope, facial asymmetry, speech difficulty, weakness, light-headedness, numbness and headaches. Hematological: Does not bruise/bleed easily. Psychiatric/Behavioral: Negative for dysphoric mood. Allergies Allergen Reactions Cortisone Outpatient Medications Prior to Visit Medication Sig Dispense Refill atorvastatin (Lipitor) 10 MG tablet Take 10 mg by mouth Nightly. furosemide (Lasix) 20 MG tablet Take 20 mg by mouth every morning. latanoprost (Xalatan) 0.005 % ophthalmic solution Administer 1 drop into both eyes daily. losartan (Cozaar) 25 MG tablet Take 25 mg by mouth daily. No facility-administered medications prior to visit. Past Medical History: Diagnosis Date Aortic stenosis Hyperlipidemia Hypertension Past Surgical History: Procedure Laterality Date ROTATOR CUFF REPAIR Right Social History Tobacco Use Smoking status: Never Smokeless tobacco: Never Substance Use Topics Alcohol use: Yes No family history on file. Objective Vitals: 02/12/24 1255 BP: 114/68 BP Location: Left arm Patient Position: Sitting BP Cuff Size: Adult Pulse: 89 SpO2: 95% Weight: 211 lb 6.4 oz (95.9 kg) Height: 5' 1 (1.549 m) Body mass index is 39.94 kg/m?. Physical Exam Constitutional: General: She is not in acute distress. Appearance: Normal appearance. She is obese. She is not toxic-appearing. HENT: Head: Normocephalic and atraumatic. Nose: Nose normal. Mouth/Throat: Mouth: Mucous membranes are moist. Eyes: Pupils: Pupils are equal, round, and reactive to light. Neck: Vascular: Carotid bruit and JVD present. Cardiovascular: Rate and Rhythm: Normal rate and regular rhythm. Pulses: Dorsalis pedis pulses are 2+ on the right side and 2+ on the left side. Posterior tibial pulses are 2+ on the right side and 2+ on the left side. Heart sounds: Murmur heard. Crescendo systol (more content not included)... Normal [facility] Progress Noteon 02-08-2024 Progress Note Yenni Jenniferlin 78 [address] Dr[address] Santos is being evaluated for aortic valve stenosis. Echocardiogram completed on 01/02/2024 showed critical aortic valve stenosis with peak/mean gradients 84/55 mm Hg. Per note, pt saw Dr. Aparicio with complaints of SOB, intermittent chest pain at rest, and edema. She had an echocardiogram done in December 2023 which demonstrated normal left ventricular systolic function, estimated EF 65%, and critical aortic stenosis. Pt then underwent a heart catheterization on 01/25/24 which showed mild CAD with severe aortic stenosis. Past Medical History: Diagnosis Date Aortic stenosis Hyperlipidemia Hypertension Blood thinner - none Transthoracic Echocardiogram 01/02/2024 Heart Catheterization 01/25/2024 Normal [facility] 36on 01-29-2024 36 Spoke with patient a nd scheduled CTA TAVR 02/11 at 11:30. Reviewed oral hydration protocol and fasting 4 hours prior. Patient will also register for pre-TAVR labs, Rosetta Osborn APRN to sign orders. CXR completed already. Normal [facility] 36 Echo and heart cath images viewable in PACs Normal [facility] 36on 01-28-2024 36 Chart reviewed, lyubov ent had echo and heart cath completed by Dr. Santos. BMP completed 01/08/24 creatinine 0.75 GFR 80. Pended CTA order, Rosetta Osborn APRN to sign. Will schedule same day as valve clinic appt once signed. Heart cath images in PACs, spoke with Dr. Santos's office to have echo images pushed to PACs. Normal [facility] 36 SECURITY ASSURANCE SPECIALIST packet/letter mailed. Yellow chart made. Normal [facility] 36 Need CTA order. VC a ppt made for 02/12/24 with YUE. Patient would like to do the CTA on the same day. Normal [facility] Vital Signs Date Time Vital Sign Value Performing Clinician Wanda terry 02-12-2024 13:13-0400 Body height 154.9 cm Kojo Rich DO [facility] 02-12-2024 13:13-0400 Body mass index (BMI) [Ratio] 39.97 kg/m2 oKjo Villanueva DO Work Phone: [employer] 02-12-2024 13:13-0400 Body weight 95.9 kg Kojo Villanueva DO Work Phone: [employer] 02-12-2024 13:13-0400 Diastolic blood pressure 68 mm[Hg] Kojo Rich MONROE Work Phone: [employer] 02-12-2024 13:13-0400 Heart rate 89 /min Kojo Villanueva DO Work Phone: [employer] 02-12-2024 13:13-0400 SaO2% (BldA) [Mass fraction] 96 % Kojo Rich DO Work Phone: [employer] 02-12-2024 13:13-0400 Systolic blood pressure 114 mm[Hg] Kojo Villanueva DO Work Phone: [employer] 02-12-2024 12:55-0400 Body height 154.9 cm Felipe Rodriguez MD Work Phone: [employer] 02-12-2024 12:55-0400 Body mass index (BMI) [Ratio] 39.94 kg/m2 Felipe Rodriguez MD Work Phone: [facility] 02-12-2024 12:55-0400 Body weight 95.89 kg Felipe Rodriguez MD Work Phone: [facility] 02-12-2024 12:55-0400 Diastolic blood pressure 68 mm[Hg] Felipe Rodriguez MD Work Phone: [facility] 02-12-2024 12:55-0400 Heart rate 89 /min Felipe Rodriguez MD Work Phone: [facility] 02-12-2024 12:55-0400 SaO2% (BldA) [Mass fraction] 95 % Felipe Rodriguez MD Work Phone: [facility] 02-12-2024 12:55-0400 Systolic blood pressure 114 mm[Hg] Felipe Rodriguez MD Work Phone: [facility] Encounters Encounter Date Encounter Type Care Provider Facility Start: 02-12-2024 End: 02-12-2024 Office consultation new/estab patient 60 min Kojo Rich DO Work Phone: [facility] Comment on above: Critical aortic valv e stenosis (Primary Dx); Essential hypertension; Hyperlipidemia, unspecified hyperlipidemia type; Chronic diastolic CHF (congestive heart failure), NYHA class 3 ([facility]) Start: 02-12-2024 End: 02-12-2024 Office outpatient new 60 minutes Felipe Rodriguez MD Work Phone: [facility] Comment on above: Critical aortic valv e stenosis Start: 02-12-2024 End: 02-12-2024 ambulatory KOJO VILLANUEVA [facility] Start: 02-12-2024 End: 02-12-2024 Subsequent hospital visit by physician Matilda Peguero CNP Work Phone: [facility] [address] Comment on above: Aortic valve stenosi s, etiology of cardiac valve disease unspecified Start: 02-12-2024 End: 02-12-2024 ambulatory MATILDA OSBORN [facility] Start: 09-14-2020 End: 09-14-2020 ambulatory KAYLEE BLANCO [facility] Start: 07-12-2020 End: 07-12-2020 ambulatory [facility] Start: 06-17-2020 End: 06-17-[address] DESIRAE EARLY [facility] Start: 06-14-[address] [facility] Start: 12-19-2019 End: 01-15-2020 ambulatory TANJA [facility] Procedures Date Procedure Procedure Detail Performing Clinician Start: 02-12-2024 Ecg routine ecg w/le ast 12 lds w/i&r Felipe Rodriguez MD Work Phone: Start: 02-12-2024 Ct angiography chest w/contrast/noncontrast Matilda Osborn APRN - [employer] C[employer] ATTENDANT Work Phone: Plan of Treatment Date Care Activity Detail Author Start: 11-11-2024 DTaP/Tdap/Td Vaccine s (2 - Td or Tdap) DTaP/Tdap/Td Vaccines (2 - Td or Tdap) [facility] Start: 12-23-2023 COVID-19 Vaccine ( season) COVID-19 Vaccine ( season) [facility] Start: 12-23-2023 Influenza vaccination Influenza Vacc ine (#1) [facility] Start: 04-23-2023 Medicare Advantage A nnual Wellness Visit Medicare Advantage Annual Wellness Visit [facility] Start: 12-03-2022 RSV Immunization for Adults (1 - 1-dose 75+ series) RSV Immunization for Adults (1 - 1-dose 75+ series) [facility] Start: 12-03-1997 Zoster Vaccines (1 of 2) Zoster Vacc mekhi (1 of 2) [facility] Start: 12-03-1965 Hepatitis C screening Hepatitis C Sc reening [facility] Start: 1959 Depression Screening Depression Scre ening [facility] Start: 1945 Creatinine measurement Creatinine Le timothy [facility] Start: 1945 Echocardiography Echocardiogram [facility] Start: 1945 Lipid panel Lipid Panel [facility] Start: 1945 Potassium measurement Potassium Cee l [facility] Start: 1945 Screening for osteoporosis Bone Dens ity Scan [facility] TRANSCATHETER AORTIC VALVE REPLACEMENT (TAVR) TRANSCATHETER AORTIC VALVE REPLACEMENT (TAVR) Critical aortic valve stenosis [facility] TRANSCATHETER AORTIC VALVE REPLACEMENT (TAVR) - OR TRANSCATHETER AORTIC VALVE REPLACEMENT (TAVR) - OR Critical aortic valve stenosis [facility] Payers Date Payer Category Payer Medicare HMO MMO MEDICARE ADV ANTAGE [id number] 2023 Medicare [id number] 1945 Unknown [id number] 1 1945 Unknown [id number] 1 1945 Unknown [id number] 1 1945 Unknown [id number] 1 1945 Unknown [id number] 1 Medicare [id number] Unknown Social History Date Type Detail Facility Start: 01-29-2024 Tobacco smoking status NHIS Never sm oked tobacco [facility] Start: 01-29-2024 Tobacco use and exposure Smokeless t obacco non-user [facility] Start: 02-12-2024 Alcoholic beverage intake Curr ent drinker of alcohol (finding) [facility] Start: 02-12-2024 History of Social function [facility] Start: 02-12-2024 Tobacco use panel [facility] Start: 1945 Sex assigned at Not on file [facility] Start: 01-28-2024 Sex Female (finding) [facility] History of Present illness Narrative 02-12-2024 Kojo VillanuevaDO - 02/12/2024 1:30 PM EDT Note Date & Type Note Facility 02-12-2024 History of Presen t illness Narrative Images from the original note were not included. [facility]: Cardiothoracic Surgery Multidisciplinary Heart Valve Clinic Date: 02/12/24 Patient:Yenni Dozier 1945 78 y.o. female [id number] Subjective: HPI: Yenni Dozier [address] Santos is being evaluated for aortic valve stenosis. Echocardiogram completed on 01/02/2024 showed critical aortic valve stenosis with peak/mean gradients 84/55 mm Hg. Per note, pt saw Dr. Aparicio with complaints of SOB, intermittent chest pain at rest, and edema. She had an echocardiogram done in December 2023 which demonstrated normal left ventricular systolic function, estimated EF 65%, and critical aortic stenosis. Pt then underwent a heart catheterization on 01/25/24 which showed mild CAD with severe aortic stenosis. Medical History Past Medical History: Diagnosis Date Aortic stenosis Hyperlipidemia Hypertension Blood thinner - none Transthoracic Echocardiogram 01/02/2024 Heart Catheterization 01/25/2024 Review of Systems Constitutional: Positive for activity change. Negative for chills, diaphoresis, fatigue and fever. HENT: Negative for nosebleeds and trouble swallowing. Eyes: Negative for discharge and visual disturbance. Respiratory: Positive for shortness of breath. Negative for apnea, cough, chest tightness and wheezing. Cardiovascular: Positive for chest pain and leg swelling. Negative for palpitations. Gastrointestinal: Negative for abdominal distention, abdominal pain, blood in stool, diarrhea, nausea and vomiting. Endocrine: Negative for cold intolerance and heat intolerance. Genitourinary: Negative for hematuria. Musculoskeletal: Negative for gait problem and myalgias. Skin: Negative for color change and rash. Neurological: Negative for dizziness, seizures, syncope, facial asymmetry, speech difficulty, weakness, light-headedness, numbness and headaches. Hematological: Does not bruise/bleed easily. Psychiatric/Behavioral: Negative for dysphoric mood. Allergies: Cortisone Past Medical History: has a past medical history of Aortic stenosis, Hyperlipidemia, and Hypertension. Past Surgical History: has a past surgical history that includes Rotator cuff repair (Right). Social History: reports that she has never smoked. She has never used smokeless tobacco. She reports current alcohol use. Family History: family history is not on file. Medications: Prior to Admission medications Medication Sig Start Date End Date Taking? Authorizing Provider atorvastatin (Lipitor) 10 MG tablet Take 10 mg by mouth Nightly. 01/08/24 Yes Historical Provider, furosemide (Lasix) 20 MG tablet Take 20 mg by mouth every morning. 01/10/24 Yes Historical Provider, latanoprost (Xalatan) 0.005 % ophthalmic solution Administer 1 drop into both eyes daily. 12/28/23 Yes Historical Provider, losartan (Cozaar) 25 MG tablet Take 25 mg by mouth daily. 01/09/24 Yes Historical Provider, Objective: BP 114/68 (BP Location: Left arm, Patient Position: Sitting, BP Cuff Size: Adult) Pulse 89 Ht 5' 0.98 (1.549 m) Wt 211 lb 6.7 oz (95.9 kg) SpO2 96% BMI 39.97 kg/m @[id number]@ Physical Exam General--AAO x 3 CV--regular rhythm with systolic murmur Resp--CTAB Abd--soft, ND, NT Ext--2+ edema in lower extremities Neuro--no gross deficits STS Risk Calculator Procedure Type: Isolated AVR Perioperative Outcome Estimate % Operative Mortality 2.46% Morbidity & Mortality 9.47% Stroke 0.954% Renal Failure 2.16% Reoperation 3.07% Prolonged Ventilation 4.89% Deep Sternal Wound Infection 0.112% Long Hospital Stay (>14 days) 4.03% Short Hospital Stay (<6 days)* 42.8% Labs: Reviewed in EMR No results found for: WBC , HGB , HCT , MCV , PLT No results found for: NA , K , CL , CO2 , BUN , CREATININE , GLUCOSE , CALCIUM Diagnostics: Reviewed in EMR Assessment/Plan: Severe symptomatic aortic stenosis--warrants replacement Chronic diastolic congestive heart failure--class III Hypertension Recommendations: Aortic valve replacement is indicated in her. Due to her age and valve size a TAVR would be a better option for her. This was explained to her in detail. The risks have been outlined as well. All questions were answered and she is willing to proceed. Patient consents to surgical bailout: [x] Yes [] No If No why: Disclaimers: INFORMED CONSENT: The nature and purpose of the proposed treatment and/or procedure have been discussed. The risks and benefits of the proposed treatment or procedures have been reviewed. Alternatives have been reviewed in addition to the risks and benefits of not receiving treatments or undergoing procedures. Pursuant to this discussion, the patient agrees to undergo the proposed treatment or procedure. Captured images seen in this note are not a substitute for a comprehensive interpretation of the entire data set as reflected by the interpreting physician with regard to radiology, echocardiography, and other diagnostic images. documented in this encounter [facility] History of Present illness Narrative 02-12-2024 Felipe Rodriguez MD - 02/12/2024 1:00 PM EDT Note Date & Type Note Facility 02-12-2024 History of Presen t illness Narrative Images from the original note were not included. [facility] [address] [address] Dept: [phone] Dept Loc: [phone] Interventional Cardiology Office Note Visit type: New patient Reason for Visit: Cardiac Valve Problem Assessment and Plan Yenni Dozier is a very pleasant 78 y.o. female who presents for evaluation of her aortic stenosis. She has severe symptomatic aortic stenosis. She has no significant coronary disease. She has no other indication for surgery. We will plan transcatheter aortic valve replacement via transfemoral approach. The Transcatheter Aortic Valve Replacement (TAVR) procedure was explained in detail. The potential risks of the procedure including bleeding, vascular complications, stroke, myocardial infarction, arrhythmias, renal dysfunction, infection and were described. All of the patient's questions were answered. The patient expressed understanding of the procedure and the potential risks and wishes to proceed with TAVR at this time. 1. Critical aortic valve stenosis - ECG 12 lead - CLINIC PERFORMED - Case Request Spanish Lecturer: Transcatheter aortic valve replacement (TAVR), TRANSCATHETER AORTIC VALVE REPLACEMENT (TAVR) - OR No follow-ups on file. It was a great pleasure seeing Yenni Dozier in our office today. Please contact me with any questions. Felipe Rodriguez MD MPH, [facility], [facility] Chief, Ischemic Heart Disease Head Of Strategy, Interventional Cardiology Fellowship Ship Cleaner Coronary, Structural, Peripheral Interventions Subjective Yenni Dozier is a very pleasant 78 y.o. female with Aortic stenosis (ejection fraction 65%, aortic valve area 0.6, peak/mean 84/55, dimensionless index 0.25), obesity, hypertension, hyperlipidemia who presents for evaluation of her aortic stenosis. She is a patient of Dr. Santos. She has been having worsening edema and shortness of breath with exertion over the past several months. She denies any syncope. She does have some mid substernal chest pain with some exertion. She denies any rest pain. She had a heart cath by Dr. Santos which revealed no significant coronary disease. She had a CTA today which revealed patent iliofemoral vessels. Review of Systems Constitutional: Positive for activity change. Negative for chills, diaphoresis, fatigue and fever. HENT: Negative for nosebleeds and trouble swallowing. Eyes: Negative for discharge and visual disturbance. Respiratory: Positive for shortness of breath. Negative for apnea, cough, chest tightness and wheezing. Cardiovascular: Positive for chest pain (relief with rest) and leg swelling. Negative for palpitations. Gastrointestinal: Negative for abdominal distention, abdominal pain, blood in stool, diarrhea, nausea and vomiting. Endocrine: Negative for cold intolerance and heat intolerance. Genitourinary: Negative for hematuria. Musculoskeletal: Negative for gait problem and myalgias. Skin: Negative for color change and rash. Neurological: Negative for dizziness, seizures, syncope, facial asymmetry, speech difficulty, weakness, light-headedness, numbness and headaches. Hematological: Does not bruise/bleed easily. Psychiatric/Behavioral: Negative for dysphoric mood. Allergies Allergen Reactions Cortisone Outpatient Medications Prior to Visit Medication Sig Dispense Refill atorvastatin (Lipitor) 10 MG tablet Take 10 mg by mouth Nightly. furosemide (Lasix) 20 MG tablet Take 20 mg by mouth every morning. latanoprost (Xalatan) 0.005 % ophthalmic solution Administer 1 drop into both eyes daily. losartan (Cozaar) 25 MG tablet Take 25 mg by mouth daily. No facility-administered medications prior to visit. Past Medical History: Diagnosis Date Aortic stenosis Hyperlipidemia Hypertension Past Surgical History: Procedure Laterality Date ROTATOR CUFF REPAIR Right Social History Tobacco Use Smoking status: Never Smokeless tobacco: Never Substance Use Topics Alcohol use: Yes No family history on file. Objective Vitals: 02/12/24 1255 BP: 114/68 BP Location: Left arm Patient Position: Sitting BP Cuff Size: Adult Pulse: 89 SpO2: 95% Weight: 211 lb 6.4 oz (95.9 kg) Height: 5' 1 (1.549 m) Body mass index is 39.94 kg/m . Physical Exam Constitutional: General: She is not in acute distress. Appearance: Normal appearance. She is obese. She is not toxic-appearing. HENT: Head: Normocephalic and atraumatic. Nose: Nose normal. Mouth/Throat: Mouth: Mucous membranes are moist. Eyes: Pupils: Pupils are equal, round, and reactive to light. Neck: Vascular: Carotid bruit and JVD present. Cardiovascular: Rate and Rhythm: Normal rate and regular rhythm. Pulses: Dorsalis pedis pulses are 2+ on the right side and 2+ on the left side. Posterior tibial pulses are 2+ on the right side and 2+ on the left side. Heart sounds: Murmur heard. Crescendo systolic murmur is present with a grade of 3/6. Pulmonary: Effort: Pulmonary effort is normal. No respiratory distress. Breath sounds: Normal breath sounds. Abdominal: General: Abdomen is flat. Palpations: Abdomen is soft. Musculoskeletal: General: Normal range of motion. Cervical back: Normal range of motion and neck supple. Right lower le+ Edema present. Left lower le+ Edema present. Skin: General: Skin is warm and dry. Neurological: General: No focal deficit present. Mental Status: She is alert and oriented to person, place, and time. Psychiatric: Mood and Affect: Mood normal. Data Reviewed and Summarized Labs: personally reviewed No results found for: WBC , HGB , HCT , MCV , PLT No results found for: GLUCOSE , CALCIUM , NA , K , CO2 , CL , BUN , CREATININE @LASTCMP@ No results found for: CHLPL , CHOL No results found for: TRIG No results found for: HDL No results found for: LDLCALC Imaging/Testing: personally reviewed No components found for: LVEF , LVEFMODE documented in this encounter [facility] Evaluation note Note Date & Type Note Facility Evaluation note Diagnosis Critical aortic valve stenosis documented in this encounter [facility] Evaluation note Note Date & Type Note Facility Evaluation note Diagnosis Critical aortic valve stenosis- Primary Essential hypertension Unspecified essential hypertension Hyperlipidemia, unspecified hyperlipidemia type Chronic diastolic CHF (congestive heart failure), NYHA class 3 (HCC) documented in this encounter [facility] Evaluation note Note Date & Type Note Facility Evaluation note Diagnosis Aortic valve stenosis, etiology of cardiac valve disease unspecified documented in this encounter [facility] Reason for visit Narrative Imaging (Routine) - Closed Note Date & Type Note Facility Reason for visit Narrative Specialty Diagnoses / Procedures Referred By Michael t Referred To Contact Radiology Diagnoses Aortic valve stenosis, etiology of cardiac valve disease unspecified Procedures CTA Angiogram TAVR Matilda Osborn, LIGHT RAIL VEHICLE OPERATOR - [employer] CENTER ATTENDANT [address] [place] [address] Phone: tel: fax: Referral ID Status Reason Start Date Expiration Date Visits Re quested Visits Authorized [id number] Closed 01/29/2024 01/28/2025 1 1 [facility] Summary Purpose Family History No Family History Records FoundNo Family History Records Found Advance Directives No Advanced Directives Records FoundNo Advanced Directives Records Found Additional Source Comments INFORMATION SOURCE (unrecogn ized section and content) DATE CREATED [facility] DATE CREATED AUTHOR AUTHOR'S ORGANIZ ATION 02/14/2024 [facility] Reason for Visit (unrecogniz ed section and content) Reason Comments Cardiac Valve Problem Care Teams (unrecognized sec tion and content) Hadoop Application Developer Relationship Specialty Start Date End Date Ria Aparicio MD [address] [place] [address] PCP - General Family Medicine 01/28/24 Hadoop Application Developer Relationship Specialty Start Date End Date Ria Aparicio MD [address] [place] [id number] PCP - General Family Medicine 01/28/24 Hadoop Application Developer Relationship Specialty Start Date End Date Ria Aparicio MD [address] [place] [address] PCP - General Family Medicine 01/28/24 FOR RECORDS PERTAINING TO PATIENTS WHO ARE OR HAVE BEEN ENROLLED IN A CHEMICAL DEPENDENCY/SUBSTANCEABUSE PROGRAM, SOME INFORMATION MAY BE OMITTED. This clinical summary was aggregated from multiple sources. Caution should be exercised in using it in the provision of clinical care. This summary normalizes information from multiple sources, and as a consequence, information in this document may materially change the coding, format and clinical context of patient data. In addition, data may be omitted in some cases. CLINICAL DECISIONS SHOULD BE BASED ON THE PRIMARY CLINICAL RECORDS. [employer] provides no warranty or guarantee of the accuracy or completeness of information in this document.
[2024-02-15 12:40] LABS: Absolute Lymphocyte Count 1.31 X10^3/uL (0.83-4.51); Absolute Neutrophil Count 6.5 X10^3/uL (2.0-7.7); Basophil# 0.04 X10^3/uL; Basophil% 0.5 % (0-1); Eosinophil# 0.19 X10^3/uL; Eosinophils% 2.1 % (0-5); Hematocrit 42.1 % (37-47); Hemoglobin 13.8 g/dL (12.0-15.0); Lymphocyte # 1.31 X10^3/ul (0.83-4.51); Lymphocyte % 14.8 % (19-41); Mean Corp Hgb Conc 32.8 g/dL (32-36); Mean Corpuscular Hgb 29.9 pg (27.0-32.0); Mean Corpuscular Volume 91.3 fL (81-99); Mean Platelet Vol. 12.1 fl (6.2-12.0); Monocyte# 0.74 X10^3/uL; Monocyte% 8.3 % (0-10); NRBC Flagged by Analyzer 0 % (0-5); Neutrophil # 6.54 X10^3/uL (2.7-7.7); Neutrophil % 73.7 % (47-70); Platelet Count 187 K/mm3 (150-450); RBC Distribution Width CV 14.6 % (11.6-14.6); RBC Distribution Width SD 48.7 fl (35.1-43.9); Red Blood Count 4.61 M/mm3 (4.2-5.4); White Blood Count 8.9 K/mm3 (4.4-11.0)
[2024-02-15 13:56] LABS: ALB/GLOB Ratio 0.9 RATIO (0.9-2.4); AST(SGOT) 14 U/L (15-37); Alanine Aminotransfer ALT/SGPT 22 U/L (13-56); Albumin, Serum 3.4 g/dL (3.2-5.0); Alkaline Phosphatase 79 U/L (45-117); Anion Gap 7 (5-15); BUN 16 mg/dL (7-18); BUN/Creat Ratio 18.8 RATIO (10-20); Calcium,Total 9.5 mg/dL (8.5-10.1); Chloride 106 mmol/L (98-107); Creatinine, Serum 0.85 mg/dL (0.55-1.02); EST Glomerular Filtration Rate 69 mL/min (>60); Est Glom Filt Rate - Afr Amer 84 mL/min (>60); Globulin 3.9 g/dL (2.2-4.2); Glucose 116 mg/dL (74-106); Potassium 3.9 mmol/L (3.5-5.1); Protein, Total 7.3 g/dL (6.4-8.2); Sodium Level 140 mmol/L (136-145)
== END | disposition home or self-care (01) ==
LOC: LAB 11:37
PROVIDERS: PCP Family Medicine; Referring Provider Nurse Practitioner Adult Health; Visit Provider Nurse Practitioner Adult Health
DX: I35.0 Nonrheumatic aortic (valve) stenosis (principal)
CPT/HCPCS: 36415; 80053; 85025

== ENCOUNTER → 2024-03-24 | Outpatient (CLI) | payer MEDICARE, SELFPAY ==
[2024-03-24 11:44] LABS: ALB/GLOB Ratio 0.9 RATIO (0.9-2.4); AST(SGOT) 14 U/L (15-37); Alanine Aminotransfer ALT/SGPT 23 U/L (13-56); Albumin, Serum 3.5 g/dL (3.2-5.0); Alkaline Phosphatase 89 U/L (45-117); Anion Gap 5 (5-15); BUN 17 mg/dL (7-18); BUN/Creat Ratio 17.4 RATIO (10-20); Calcium,Total 9.8 mg/dL (8.5-10.1); Chloride 105 mmol/L (98-107); Cholesterol 170 mg/dL (200); Creatinine, Serum 0.98 mg/dL (0.55-1.02); EST Glomerular Filtration Rate 59 mL/min (>60); Est Glom Filt Rate - Afr Amer 71 mL/min (>60); Glucose 159 mg/dL (74-106); High Density Lipoprotein 61 mg/dL; Potassium 4.1 mmol/L (3.5-5.1); Protein, Total 7.5 g/dL (6.4-8.2); Sodium Level 138 mmol/L (136-145); Triglycerides 238 mg/dL; Very Low Density Lipoprotein 48 mg/dL (5-40)
== END | disposition home or self-care (01) ==
LOC: LAB 10:25
PROVIDERS: PCP Family Medicine; Referring Provider Physician Assistant Medical; Visit Provider Physician Assistant Medical
DX: E78.5 Hyperlipidemia, unspecified (principal); Z95.2 Presence of prosthetic heart valve
CPT/HCPCS: 36415; 80053; 80061

== ENCOUNTER → 2025-02-19 | Outpatient (CLI) | payer MEDICARE, SELFPAY ==
--- NOTE | 2025-02-19 09:19 | ECHOD_ITS ---
Reason For Study ECHO/Echo Complete
== END | disposition home or self-care (01) ==
PROVIDERS: PCP Family Medicine; Referring Provider Internal Medicine Interventional Cardiology; Visit Provider Internal Medicine Interventional Cardiology
DX: I35.0 Nonrheumatic aortic (valve) stenosis (principal)
CPT/HCPCS: 93306